=== PATIENT | female | born 1975 ===

== ENCOUNTER 2017-06-16 06:02 | Day surgery (SDC) | payer OTHER ==
[2017-06-16] MEDS ORDERED: ceFAZolin 1 gm in NS 2 GM/200 ML BAG IVPB ONE (07:23)
[2017-06-16] MEDS ORDERED: Propofol 10 mg/ml Inj (20 ML) ONE (07:23)
[2017-06-16] MEDS ORDERED: Midazolam 2 MG/2 ML VIAL ONE (07:23)
[2017-06-16] MEDS: Lidocaine/Epinephrine 1% 1:100000 10 ML IJ ONE ×2 (07:38→07:50)
[2017-06-16] MEDS: Bupivacaine HCl 0.25% PF (30 ml) Inj ONE ×2 (07:38→07:50)
[2017-06-16] MEDS ORDERED: Bupivacaine HCl 0.25% PF (30 ml) Inj ONE (08:51)
[2017-06-16] MEDS ORDERED: HYDROmorphone 0.5 mg/0.5 ml ISec IVP PRN (09:34)
[2017-06-16] MEDS ORDERED: Oxycodone/Acetaminophen 5/325 mg Tab PO PRN (09:57)
[2017-06-16 11:04] VITALS: BP 135/69; PULSE 84; RESP 18; TEMP 97.3; O2SAT 100
--- NOTE | 2017-06-16 11:24 | PCM.SURG1 ---
Surgeon's Initial Post Op Note - Surgeon's Notes Surgeon: Dr. Lyon Cut Out Machine Operator: Merchant Bao PGY1 Type of Anesthesia: General Endo Pre-Operative Diagnosis: Calculus Cholelithiasis Operative Findings: for details see op note Post-Operative Diagnosis: as above Operation Performed: Robotic Cholecystectomy Specimen/Specimens Removed: Gallbladder Estimated Blood Loss: EBL {In ML}: 5 Drains Used: No Drains Post-Op Condition: Good Date of Surgery/Procedure: 06/16/17 Time of Surgery/Procedure: 08:00
--- NOTE | 2017-06-17 01:18 | OP ---
PROCEDURE DATE: 06/16/2017 PREOPERATIVE DIAGNOSES: 1. Chronic cholecystitis and cholelithiasis. 2. Chronic abdominal pain. POSTOPERATIVE DIAGNOSES: 1. Chronic cholecystitis and cholelithiasis. 2. Chronic abdominal pain. PROCEDURE DONE: 1. Robotic cholecystectomy. 2. Laparoscopic bilateral TAP block placement. SURGEON: Stanford Lyon MD BRICK CARRIER: DARLYN Garza, PGY-1 resident TYPE OF ANESTHESIA: Endotracheal tube anesthesia. ESTIMATED BLOOD LOSS: 10 mL DRAINS: None. PATHOLOGY: Gallbladder with gallstones was sent for pathology. COMPLICATIONS: None. INTRAOPERATIVE FINDINGS: The patient had changes of chronic cholecystitis and cholelithiasis. DESCRIPTION OF PROCEDURE: On intraoperative steps, this 42-year-old female was diagnosed with chronic cholecystitis and cholelithiasis and the patient had a chronic abdominal pain and the patient was consented for robotic cholecystectomy with TAP block and brought to the OR, placed supine on the operating table. After the induction of the anesthesia, the abdomen was prepped and draped in usual sterile fashion. The supraumbilical transverse incision was made after incising the skin, subcutaneous tissue, and fascia. The robotic camera port was placed, pneumo was created. Another three 8-mm port was placed in upper abdomen and the robot was brought in. Camera arm as well as arm 1 and arm 2 was docked and the gallbladder was retracted cranially. Calot's triangle dissection was done. Cystic duct and cystic artery were identified. The intraoperative Firefly was used to identify the ductal anatomy. The top down approach was done to further visualize the critical view of the safety and after that the cystic duct was clipped at 3 places and cystic artery was clipped at 3 places and cut in between 2 clips near the gallbladder and gallbladder was dissected free from the gallbladder fossa. There was proper hemostasis in each and every part of the procedure and the gallbladder was sent off the table for pathology. All instruments were taken out. Robot was undocked. All the ports were taken out under vision. Pneumo was deflated and before taking all the ports out, the laparoscopic bilateral TAP block was given. The 30:30 mL of Marcaine was injected, first on the right and then on the left side in the transverse abdominis muscles plain and after proper TAP block, the port was taken out. The umbilical port site was closed in 2 layer, the fascia with 0 Vicryl interrupted suture, skin with 4-0 Monocryl, and dry sterile dressing was applied. The patient tolerated the procedure well. Count of instrument and gauze was correct. There were no apparent complications. The patient was sent to the postanesthesia care unit in stable condition. Stanford Lyon MD
== END 2017-06-16 11:22 | disposition home or self-care (01) ==
LOC: C.SDS 06:02
PROVIDERS: ATTEND Surgery Surgical Critical Care
DX: K80.10 Calculus of gallbladder with chronic cholecystitis without obstruction (principal)
CPT/HCPCS: 47562; 64488; 88304; J0690; J1100; J1170; J2001; J2250; J2405; J2704; J3010